=== PATIENT | male | born 1930 | race Caucasian/White ===

== ENCOUNTER 2019-03-06 06:33 | Inpatient (IN) | payer MEDICARE ==
[~2019-03-06] VITALS: Ht 177.8 cm; Wt 63.5 kg
--- NOTE | 2019-03-06 06:33 | NUR ---
PT [facility] BLS. TAKEN TO BED 7
--- NOTE | 2019-03-06 06:35 | NUR ---
Dr. Aguilar examining patient.
--- NOTE | 2019-03-06 06:41 | NUR ---
PT BIBA C/O NAUSEA/VOMITING AND ABD CRAMPING, CONSTIPATION X MULTIPLE DAYS. STATES THIS HAS HAPPENED IN THE PAST AND HE USUALLY TAKES STOOL SOFTENER BUT HAS NOT TAKEN IT THIS TIME. ABD SOFT, ROUND, TENDER TO PALP. NO ABD DISTENTION NOTED. RR EVEN AND UNLABORED, PT CALM AND PLEASANT IN BED, VSS. MEDHX: HTN ALLERGIES: DENIES
[2019-03-06] MEDS ORDERED: MORPHINE SULFATE 4 MG/ML SYR IVP ONE (06:45)
[2019-03-06] MEDS ORDERED: NACL 0.9% 1,000 ML IV ONE ×2 (06:45→08:50)
[2019-03-06] MEDS ORDERED: ONDANSETRON 4 MG/2 ML VIAL IVP ONE (06:45)
[2019-03-06 06:46] VITALS: BP 67/43
[2019-03-06] MEDS ORDERED: ATOR20TA PO (06:51)
[2019-03-06] MEDS ORDERED: LISI10TA11 PO (06:51)
--- NOTE | 2019-03-06 07:09 | NUR ---
Dr. Boland examining patient.
--- NOTE | 2019-03-06 07:40 | NUR ---
TO CT VIA W/C.
[2019-03-06 07:45] LABS: BASOPHILS # (AUTO) 0.1 K/uL (0.00-0.22); BASOPHILS % (AUTO) 0.4 % (0.0-2.0); EOSINOPHILS # (AUTO) 0.2 K/uL (0-0.4); EOSINOPHILS % (AUTO) 1.5 % (0.0-4.0); HEMATOCRIT 42.2 % (36-52); HEMOGLOBIN 13.9 g/dL (12.0-18.0); LYMPHOCYTES # (AUTO) 3.9 K/uL (2.0-11.5); LYMPHOCYTES % (AUTO) 29.1 % (20.5-51.1); MEAN CORPUSCULAR HEMOGLOBIN 32 pg (27-31); MEAN CORPUSCULAR HGB CONC 33 g/dL (33-37); MEAN CORPUSCULAR VOLUME 96.6 fL (80-94); MONOCYTES # (AUTO) 0.3 K/uL (0.8-1.0); MONOCYTES % (AUTO) 2.4 % (1.7-9.3); NEUTROPHILS # (AUTO) 8.8 K/uL (1.8-7.7); NEUTROPHILS % (AUTO) 66.6 % (42.2-75.2); PLATELET COUNT (AUTO) 192 K/uL (140-450); RED BLOOD CELL COUNT(AUTO) 4.37 MIL/uL (4.20-6.10); RED CELL DISTRIBUTION WIDTH 13.7 % (11.6-13.7); WHITE BLOOD COUNT (AUTO) 13.3 K/uL (4.8-10.8)
[2019-03-06 08:10] LABS: ANION GAP 20.6 (8-16); CARBON DIOXIDE 20.2 mmol/L (21-32); CHLORIDE 105 mmol/L (98-107); CREATININE 1.2 mg/dL (0.7-1.3); GLUCOSE 180 mg/dL (74-106); POTASSIUM 3.8 mmol/L (3.5-5.1); SODIUM SERUM 142 mmol/L (136-145); UREA NITROGEN, BLOOD 13 mg/dL (7-18)
[2019-03-06 08:15] LABS: ALBUMIN 3.5 g/dL (3.4-5.0); AMYLASE 103 U/L (25-115); ASPARTATE AMINOTRANSFERASE 31 U/L (15-37); LIPASE 154 U/L (73-393); TOTAL BILIRUBIN 0.8 mg/dL (0.0-1.0)
--- NOTE | 2019-03-06 08:25 | NUR ---
PT CLEANED AND POSITIONED FOR COMFORT
[2019-03-06] MEDS ORDERED: metroNIDAZOLE 500 MG/NS PREMIX 100 ML IV ONE (09:00)
[2019-03-06] MEDS ORDERED: LEVOFLOXACIN 500 MG/D5W PREMIX 100 ML IV ONE (09:00)
[2019-03-06 09:03] LABS: PROTHROMBIN TIME 10.4 secs (10.8-13.4)
[2019-03-06 10:40] VITALS: BP 103/57
--- NOTE | 2019-03-06 10:40 | NUR ---
RECEIVED PT FROM ED NURSE EMILY FOR CONTINUITY OF CARE. PT IS AAOX4, COOPERATIVE TO CARE. PT SKIN IS INTACT. PT AMBULATORY BUT MILDLY UNSTEADY ON FEET SO STANDBY ASSISTANCE NEEDED FOR SAFETY AND ASSISTANCE WITH IV LINES AND POLE. PT HAD ONE EPISODE OF DIARRHEA ON ADMISSION. DENIES HAVING N/V, CHEST PAIN, OR ABD PAIN. ALSO NO COMPLAINTS OF SOB OR DISTRESS. IV IN THE LEFT FA 18G RUNNING 1L NS BOLUS. IV IN THE RIGHT FA 20G SALINE LOCKED. PT LOOKS COMFORTABLE IN BED WITH RITU ASHFORD AT BEDSIDE. EXPLAINED POC TO PT AND SON AT BEDSIDE. BOTH VERBALIZED UNDERSTANDING OF TEACHING. MRSA SWAB DONE AND TAKEN TO LAB. FALL RISK SIGN POSTED AND WRIST BAND APPLIED. ALLERGY BAND WITH BEE ALLERGY ALSO PLACED ON PT. ALL SAFETY MEASURES IN PLACE. BED IN LOW POSITION, CALL LIGHT WITHIN REACH. PER RITU ASHFORD, ALL PT BELONGINGS WILL BE TAKEN HOME. PT VERBALIZES UNDERSTANDING OF USE OF CALL LIGHT AND UNDERSTANDS TO CALL FOR HELP TO THE RESTROOM. WILL ROUND FREQUENTLY ON PT.
--- NOTE | 2019-03-06 11:00 | NUR ---
D/C PLANNIN YRS OLD MALE PT WAS ADMITTED FROM HOME A/OX4 WITH A DX OF DIVERTICULITIS /COLITIS, EARLY SEPSIS DUE TO LACTIC ACID 6.6 TO 5.8 . HX OF BORDERLINE DM, HTN AND HYPERLIPIDEMIA .PT IS GETTING ZOSYN IVPB , SURGICAL AND GI CONSULT D/C PLANING PER RECOMMENDATION. Addendum: 03/08/19 at 1502 by Apurva Hayden CM D/C PLANNING : 03/07/[address] EVANS COLONOSCOPY TOMORROW ,CONTINUE ZOSYN IVPB , PAIN CONTOLL AND KEEP PT NPO FOR TODAY CM TO FOLLOW Addendum: 03/08/19 at 1509 by Apurva Hayden CM DC PLANNING : DISCHARGE PATIENT HOME AND F/U WITH PCP WITH IN 7 DAYS ,GI OUT PT IN 3-4 WEEKS FOR C SCOPE RESULT PROVIDED DR Juliann EVANS OFFICE NUMBER. SPOKE WITH ADRYAN FROM [facility] [phone] NOTIFIED THAT PT HAS A DC ORDER.
--- NOTE | 2019-03-06 11:01 | NUR ---
Patient will be admitted to care of DR. ORTIZ. Admited to [facility]. Will go to room 122-B. Belongings list completed. Report to RAINA ARELLANO.
--- NOTE | 2019-03-06 11:32 | NUR ---
PT SON AND DAUGHTER AT BEDSIDE. PT AUTHORIZED TO GIVE UPDATES AND ANY REQUESTED INFO TO THEM. DAUGHTER IS ASIYA: . SON IS DEJON: .
[2019-03-06] MEDS ORDERED: MORPHINE SULFATE 2 MG/ML SYR IVP PRN (11:50)
[2019-03-06] MEDS ORDERED: KETOROLAC 30 MG/ML VIAL IVP PRN (11:50)
[2019-03-06] MEDS ORDERED: INFLUENZA VACCINE QUAD 0.5 ML SYR IMVAC PRN (11:50)
[2019-03-06] MEDS ORDERED: PNEUMOCOCCAL VACCINE 23 MCG/0.5 ML VIAL IMVAC PRN (11:50)
[2019-03-06 12:00] VITALS: BP 106/60
[2019-03-06] MEDS ORDERED: DEXTROSE 50% 50 ML SYR IVP PRN (12:05)
[2019-03-06] MEDS ORDERED: INSULIN LISPRO SLIDING SCALE 100 UNITS/ML VIAL SUBQ PRN (12:05)
--- NOTE | 2019-03-06 12:28 | NUR ---
PATIENT HAS BEEN SCREENED AND CATEGORIZED HIGH NUTRITION RISK. PATIENT WILL BE SEEN WITHIN 1-2 DAYS OF ADMISSION. 03/06/19-03/07/[address]
[2019-03-06] MEDS: DEXT 5% / NACL 0.45% 1,000 ML IV SCH (12:32)
--- NOTE | 2019-03-06 12:46 | NUR ---
PT RESTING IN BED WITH SON AND DAUGHTER AT BEDSIDE. PT DENIES ANY MORE EPISODES OF DIARRHEA. DENIES N/V AT THIS TIME. ALL NEEDS MET. WILL CONTINUE TO ROUND FREQUENTLY ON PT. BED IN LOW POSITION, CALL LIGHT WITHIN REACH.
[2019-03-06] MEDS: PIPERACILLIN/TAZOBACTAM 3.375 GM in DEXTROSE 5% 50 ML IV SCH ×2 (14:06→20:33)
--- NOTE | 2019-03-06 14:39 | NUR ---
PT SLEEPING WITH FAMILY AT BEDSIDE. ALL NEEDS MET. WILL CONTINUE TO ROUND FREQUENTLY ON PT. BED IN LOW POSITION, CALL LIGHT WITHIN REACH.
[2019-03-06 16:00] VITALS: BP 122/52
[2019-03-06] MEDS: BLOOD GLUCOSE MONITORING 1 DEV DEV FS SCH ×2 (16:39→20:33)
--- NOTE | 2019-03-06 16:49 | NUR ---
PT RESTING IN BED. ALL NEEDS MET. WILL CONTINUE TO ROUND FREQUENTLY ON PT. BED IN LOW POSITION, CALL LIGHT WITHIN REACH.
[2019-03-06 17:43] LABS: APPEARANCE,URINE CLEAR (CLEAR); BILIRUBIN,URINE 1+ (NEGATIVE); BLOOD, URINE NEGATIVE (NEGATIVE); COLOR,URINE AMBER (YELLOW); LEUKOCYTE ESTERASE ,URINE NEGATIVE (NEGATIVE); NITRITE, URINE NEGATIVE (NEGATIVE); PH,URINE 5.5 (5.0-9.0); UGLUCOSE NEGATIVE (NEGATIVE)
[2019-03-06] MEDS ORDERED: HYOSCYAMINE 0.125 MG TAB PO PRN (17:55)
[2019-03-06] MEDS ORDERED: POLYETHYLENE GLYCOL 17 GM/PKT PO SCH (17:59)
--- NOTE | 2019-03-06 18:43 | NUR ---
PT HAD DINNER. FAMILY AT BEDSIDE. PT TOLERATED FOOD WELL SO FAR. WILL CONTINUE TO ROUND ON PT. BED IN LOW POSITION, CALL LIGHT WITHIN REACH.
--- NOTE | 2019-03-06 19:23 | NUR ---
ENDORSED PT TO CONTRACT ADMINISTRATION COORDINATOR FOR CONTINUITY OF CARE. PT IN STABLE CONDITION AT THIS TIME.
--- NOTE | 2019-03-06 19:24 | NUR ---
Received endorsement from AM shift RN; patient A/Ox4, able to make needs known, Bulgarian speaking, ambulatory with standby assist. Patient talking with daughter Eddie; introduced self, updated board. No SOB or distress noted, on room air. IV sites noted on left forearm, 18 gauge, running IVF at 70mL/hr. and right antecubital, 20 gauge, saline locked. Skin intact. Bed in the lowest position, call light within reach. Initial assessment done. Will continue to monitor.
[2019-03-06 20:00] VITALS: BP 107/52
--- NOTE | 2019-03-06 20:30 | NUR ---
Vitals taken, no SOB or distress noted. Patient was switched from 122B to 122A at this time.
--- NOTE | 2019-03-06 21:40 | NUR ---
Due meds given, tolerated well.
--- NOTE | 2019-03-06 23:30 | NUR ---
Vitals taken, no distress noted.
[2019-03-07] VITALS: BP 110/56
--- NOTE | 2019-03-07 01:02 | NUR ---
Rounds done; patient asleep, visible chest rise and fall noted.
[2019-03-07] MEDS: DEXT 5% / NACL 0.45% 1,000 ML IV SCH ×3 (01:40→21:16)
--- NOTE | 2019-03-07 03:30 | NUR ---
Vitals taken, no SOB or distress noted. Patient asleep, eyes closed, visible chest rise and fall noted.
[2019-03-07 04:00] VITALS: BP 109/61
[2019-03-07] MEDS: PIPERACILLIN/TAZOBACTAM 3.375 GM in DEXTROSE 5% 50 ML IV SCH ×3 (04:41→21:49)
[2019-03-07] MEDS: BLOOD GLUCOSE MONITORING 1 DEV DEV FS SCH ×4 (06:04→21:41)
--- NOTE | 2019-03-07 06:10 | NUR ---
Vitals stable, due meds given. Will endorse to AM shift RN for continuity of care.
--- NOTE | 2019-03-07 07:25 | NUR ---
RECEIVED BEDSIDE REPORT FROM DRY CELL SEALER NURSE FOR CONTINUITY OF CARE. PATIENT IS AWAKE AND RESTING ON BED. PATIENT SPEAKS CYMRO AND AAOX4. RESPIRATION EVEN AND UNLABORED ON RA. DENIED PAIN, SON AND NAUSEA. NO SIGNS OF DISTRESS NOTED. IV ON LFA 18, CLEAN AND INTACT, INFUSING PER MD ORDER. RAC 20G, CLEAN AND INTACT, SL. SKIN INTACT AND CLEAN. PATIENT IS CONTINENT AND ABLE TO AMBULATE WITH STANDBY ASSIST. URANAL BY BEDSIDE. DISCUSSED PLAN OF CARE WITH PATIENT AND PATIENT VERBALIZED UNDERSTANDING. TELE MONITOR ATTACHED. SAFETY MEASURES IN PLACE. BED IN LOW POSITION AND CALL LIGHT WITHIN REACH. FALL RISK PROTOCOL IN PLACE AND BED ALARM ACTIVATED. INSTRUCTED PATIENT TO USE THE CALL LIGHT FOR ANY ASSISTANCE AND PATIENT WAS AWARE.
[2019-03-07 08:00] VITALS: BP 105/52
[2019-03-07] MEDS: POLYETHYLENE GLYCOL 17 GM/PKT PO SCH (09:40)
--- NOTE | 2019-03-07 09:40 | NUR ---
ADMINISTERED MED PER MD ORDER, PATIENT TOLERATED WELL. MED EDUCATION PROVIDED TO PATIENT AND DAUGHTER MIA AT BEDSIDE, BOTH VERBALIZED UNDERSTANDING. PATIENT AWAKE AND TALKING TO DAUGHTER BY BEDSIDE. DENIED PAIN,SOB, NAUSEA, AND VOMITING. NO SIGNS OF DISTRESS NOTED. TELE MONITOR ATTACHED. SAFETY MEASURES IN PLACE. BED IN LOW POSITION AND CALL LIGHT WITHIN REACH. FALL RISK PROTOCOL IN PLACE AND BED ALARM ACTIVATED. INSTRUCTED PATIENT TO USE THE CALL LIGHT FOR ANY ASSISTANCE AND PATIENT WAS AWARE.
--- NOTE | 2019-03-07 10:01 | NUR ---
DR ORTIZ IS TALKING TO PATIENT AND PATIENT'S DAUGHTER MIA AT BEDSIDE. TELE MONITOR ATTACHED. NO SIGNS OF DISTRESS NOTED. SAFETY MEASURES IN PLACE.
--- NOTE | 2019-03-07 10:38 | NUR ---
Social Work Note: High Risk DC Screen Yes Name: Daphney De Guzman Home Relationship: Daughter Pre-Admission Living Arrangements: Lives with Other Prior ADL Needs Assistance Current Home Health Name/Tel: N/A Current DME/02 Name/Tel: CANE, WHEELCHAIR, WALKER Current Hospice Name/Tel: N/A Current Dialysis Name/Tel: N/A Healthcare Decision Maker: Patient Advance Directive No Information Taught: Advance Directive Person Taught: Children Teaching Tools: Computer Generated Print Verbal Factors Affecting Learning: None Participation Level: Active Evaluation: Verbalizes Understanding Needs Additional Education: No Discipline: Case Mgt/Social Svcs Tentative Discharge Plan/Destination: No Needs Identified Will require assistance post discharge: No Tentative Discharge Plan Summary: Patient is an 88 year old male that was admitted for diverticulitis. Patient has history of hyperlipidemia, hypertension, and borderline diabetes. No history of substance use or mental health per daughter, Daphney De Guzman [phone]. Patient was admitted from home. Patient's demographics, address, and emergency contact information was verified with Daphney Sepulveda. SW inquired if patient had an Advanced Directive on file. Daphney Sepulveda stated that patient did not and requested an Advanced Directive to be left at bedside. SW provided education on Advanced Directive and forms were left at bedside. Anticipated disposition is to return home. ART/CM will follow up as needed. Signature: ESHA Gimenez Date: Mar 07, 2019 Time: 10:37
[2019-03-07 11:08] LABS: BASOPHILS % (AUTO) 0.2 % (0.0-2.0); EOSINOPHILS % (AUTO) 0.3 % (0.0-4.0); HEMATOCRIT 34.7 % (36-52); HEMOGLOBIN 11.6 g/dL (12.0-18.0); LYMPHOCYTES % (AUTO) 19.5 % (20.5-51.1); MEAN CORPUSCULAR HEMOGLOBIN 32 pg (27-31); MEAN CORPUSCULAR HGB CONC 34 g/dL (33-37); MEAN CORPUSCULAR VOLUME 96.6 fL (80-94); MONOCYTES # (AUTO) 1.1 K/uL (0.8-1.0); MONOCYTES % (AUTO) 10.9 % (1.7-9.3); NEUTROPHILS # (AUTO) 7.1 K/uL (1.8-7.7); NEUTROPHILS % (AUTO) 69.1 % (42.2-75.2); PLATELET COUNT (AUTO) 154 K/uL (140-450); RED CELL DISTRIBUTION WIDTH 13.6 % (11.6-13.7); WHITE BLOOD COUNT (AUTO) 10.3 K/uL (4.8-10.8)
--- NOTE | 2019-03-07 11:35 | NUR ---
CHECKED BLOOD GLUCOSE AND RECEIVED 69. PATIENT DENIED DIZZINESS, LIGHTHEADEDNESS, NAUSEA AND VOMITING. PATIENT IS ASYMPTOMATIC. PROVIDED 4 OZ OF ORANGE JUICE TO PATIENT AND PATIENT IS DRINKING IT NOW. NO SIGNS OF DISTRESS NOTED. WILL RECHECK BLOOD GLUCOSE SHORTLY. PATIENT IS TALKING TO DAUGHTER MIA AND GRANDRITU YOU AT BEDSIDE. SAFETY MEASURES IN PLACE. BED IN LOW POSITION AND CALL LIGHT WITHIN REACH. FALL RISK PROTOCOL IN PLACE AND WOUND BED ACTIVATED. INSTRUCTED PATIENT TO USE THE CALL LIGHT FOR ANY ASSISTANCE AND PATIENT WAS AWARE.
[2019-03-07 11:46] LABS: ALBUMIN 2.7 g/dL (3.4-5.0); ASPARTATE AMINOTRANSFERASE 36 U/L (15-37); CHLORIDE 108 mmol/L (98-107); CREATININE 1.3 mg/dL (0.7-1.3); GLUCOSE 73 mg/dL (74-106); POTASSIUM 3.8 mmol/L (3.5-5.1); SODIUM SERUM 141 mmol/L (136-145); TOTAL BILIRUBIN 1.1 mg/dL (0.0-1.0); UREA NITROGEN, BLOOD 15 mg/dL (7-18)
--- NOTE | 2019-03-07 12:02 | NUR ---
RECHECKED BLOOD GLUCOSE 93 AND PATIENT IS TALKING TO DAUGHTER MIA AT BEDSIDE. NO SIGNS OF DISTRESS NOTED. SAFETY MEASURES IN PLACE.
[2019-03-07 12:20] LABS: ANION GAP 13.6 (8-16); CARBON DIOXIDE 23.2 mmol/L (21-32)
--- NOTE | 2019-03-07 13:13 | NUR ---
ADMINISTERED ANTIBIOTIC. PT. GIVEN MEDICATION TEACHING REGARDING MEDICATION PURPOSE, SIDE EFFECTS. PT. VERBALIZES UNDERSTANDING. DAUGHTER AT BEDSIDE. BED IN LOW POSITION. CALL LIGHT WITHIN REACH.
--- NOTE | 2019-03-07 13:41 | NUR ---
ENDORSED PATIENT AT BEDSIDE TO EMILY RN FOR CONTINUITY OF CARE. PATIENT IS RESTING ON BED AT THIS TIME. NO SIGNS OF DISTRESS NOTED. PATIENT IS IN STABLE CONDITION. SAFETY MEASURES IN PLACE.
--- NOTE | 2019-03-07 13:45 | NUR ---
RECEIVED REPORT FROM RAINA PHILLIP. PT HAS NO SIGNS OF DISTRESS AT THIS TIME.
--- NOTE | 2019-03-07 15:00 | NUR ---
PT RESTING IN BED IN SUPINE POSITION WATCHING TV. PT DENIES PAIN AND HAS NO SIGNS OF DISTRESS AT THIS TIME.
--- NOTE | 2019-03-07 15:03 | NUR ---
03/07/19 RD INITIAL ASSESSMENT COMPLETED PLEASE REFER TO NUTRITION ASSESSMENT UNDER CARE ACTIVITY FOR ESTIMATED NUTRITIONAL NEEDS. 1. CONTINUE CLEAR LIQUID DIET TOLERATED 2. IF/WHEN MEDICALLY APPOPRIATE TO START NUTRITION, CONSIDER ADVANCE DIET TOLERATED TO CARDIAC, NA2GM DIET 3. DIET EDUCATION REGARDING AN OVERALL HEALTHY DIET INCLUDING HTN MANAGEMENT AND HIGH FIBER DIET WAS GIVEN 4. RD TO FOLLOW-UP 2-3 DAYS, HIGH RISK CHASIDY TOM RD
[2019-03-07 16:00] VITALS: BP 103/60
[2019-03-07] MEDS ORDERED: BOWEL EVACUANT DRINK 4,000 ML PDS PO SCH (17:00)
[2019-03-07] MEDS ORDERED: LACTULOSE 20 GM/30 ML UDC PO SCH (17:00)
[2019-03-07] MEDS ORDERED: SENNA 8.6 MG TAB PO SCH (17:00)
--- NOTE | 2019-03-07 17:15 | NUR ---
NOTED ORDERS FROM DR. EVANS. ADMINISTERED MEDICATIONS AND GIVEN INSTRUCTIONS REGARDING BOWEL PREPARATION FOR PROCEDURE TOMORROW TO PT AND FAMILY, VERBALIZED UNDERSTANDING OF INDICATIONS AND POTENTIAL SIDE EFFECTS. PROVIDED BEDSIDE COMMODE. PT HAS NO SIGNS OF DISTRESS AT THIS TIME.
--- NOTE | 2019-03-07 19:05 | NUR ---
ENDORSED PT TO SUMMER BABYSITTER NURSE. PT HAS NO SIGNS OF DISTRESS AT THIS TIME.
--- NOTE | 2019-03-07 19:06 | NUR ---
RECD. RESTING IN BED, AWAKE, A/OX4. RESPIRATION EVEN AND UNLABORED. IV OF D5 1/2S AT 70 ML/HR INFUSING, LEFT AC G18. PATIENT HAS FINISHED DRINKING THE GOLYTELY. USES THE BSC WITH ASSISTANCE. PLAN OF CARE FOR THE SHIFT DISCUSSED. VERBALIZED UNDERSTANDING. DENIES PAIN 0/10.
--- NOTE | 2019-03-07 20:30 | NUR ---
ASSISTED TO BSC TO HAVE BM. HAD BM WHICH IS YELLOWISH LIKE URINE BUT WITH SOME BROWNISH LIQUID MIX IN IT. ASSISTED BACK TO BED, SAFETY MAINTAINED.
--- NOTE | 2019-03-07 21:00 | NUR ---
ASSISTED TO THE BSC TO HAVE BM. BACK TO BED WITH ASSISTANCE.
--- NOTE | 2019-03-07 21:30 | NUR ---
ASSISTED TO BSC TO HAVE ANOTHER BM, STARTING TO HAVE A CLEAR BM.
--- NOTE | 2019-03-07 21:45 | NUR ---
ASSISTED AGAIN TO BSC TO HAVE BM. ONLY A SMALL AMOUNT OF YELLOWISH WITH TINT OF BROWN LIQUID NOTED.
--- NOTE | 2019-03-07 23:00 | NUR ---
SLEEPING COMFORTABLY IN BED.
--- NOTE | 2019-03-07 23:20 | NUR ---
WENT KALYN BSC WITHOUT CALL NURSE, INSTRUCTED TO USE CALL LIGHT WHENEVER GETTING OUT OF BED. VERBALIZED UNDERSTANDING.
--- NOTE | 2019-03-08 00:25 | NUR ---
OUT OF BED TO GO TO BSC FOR THE SEVENTH TIME, ASSISTED BACK TO BED. SAFETY MAINTAINED.
--- NOTE | 2019-03-08 02:30 | NUR ---
GETTING CONFUSED, REORIENTED TO HOSPITAL SETTING.
--- NOTE | 2019-03-08 03:30 | NUR ---
ASSISTED TWICE TO GO TO BSC. BM CLEAR. BACK TO BED. ADVISED TO SLEEP MORE.
[2019-03-08 04:00] VITALS: BP 113/49
--- NOTE | 2019-03-08 05:30 | NUR ---
ASSISTED BY RN TO GO TO BSC. BACK TO BED AFTER USING BSC.
[2019-03-08] MEDS: DEXT 5% / NACL 0.45% 1,000 ML IV SCH (06:44)
[2019-03-08] MEDS: PIPERACILLIN/TAZOBACTAM 3.375 GM in DEXTROSE 5% 50 ML IV SCH (06:55)
[2019-03-08] MEDS: BLOOD GLUCOSE MONITORING 1 DEV DEV FS SCH ×2 (07:01→12:05)
--- NOTE | 2019-03-08 07:25 | NUR ---
ENDORSED TO AM SHIFT NURSE FOR CONTINUITY OF CARE.
--- NOTE | 2019-03-08 07:27 | NUR ---
RECEIVED REPORT FROM DIGITAL CARTOGRAPHIC TECHNICIAN NURSE. PT LYING IN BED,AWAKE AND ALERT, VERBALLY RESPONSIVE. NO S/S OF PAIN OR SOB. PT ON ROOM AIR. SKIN INTACT. IV INTACT AND PATENT TO RIGHT AC WITH IVF D5 1/2 NS 70ML/HR. TOLERATING WELL. FALL PRECAUTIONS IN PLACE. CALL LIGHT WITHIN REACH.
[2019-03-08] MEDS: POLYETHYLENE GLYCOL 17 GM/PKT PO SCH (10:27)
--- NOTE | 2019-03-08 10:30 | NUR ---
CONTINUES TO BE NPO EXCEPT MEDICATIONS. PATIENT IS LYING IN BED, DENIES ANY PAIN OR DISCOMFORT. IVF D5 1/2 NS INFUSING @70ML/HR. TOLERATING WELL. FALL PRECAUTIONS IN PLACE. PATIENT AMBULATED TO THE RESTROOM WITH 1 PERSON ASSIST.
[2019-03-08] MEDS ORDERED: diphenhydrAMINE 50 MG/ML VIAL ONE (13:24)
[2019-03-08] MEDS ORDERED: fentaNYL 0.05 MG/ML VIAL ONE (13:24)
[2019-03-08] MEDS ORDERED: MIDAZOLAM 2 MG/2 ML VIAL ONE (13:24)
--- NOTE | 2019-03-08 13:30 | NUR ---
PATIENT IS OFF THE UNIT FOR GI COLONOSCOPY PROCEDURE AT THIS TIME.
[2019-03-08] MEDS ORDERED: fentaNYL 0.05 MG/ML VIAL IVP ONE (14:27)
[2019-03-08] MEDS ORDERED: MIDAZOLAM 2 MG/2 ML VIAL IVP ONE (14:28)
--- NOTE | 2019-03-08 15:30 | NUR ---
PATIENT RETURNED FROM GI COLONOSCOPY. NO S/S DISTRESS NOTED.
[2019-03-08 15:59] VITALS: BP 100/67
[2019-03-08 16:00] VITALS: BP 100/67
[2019-03-08] MEDS ORDERED: CIPR500T4 PO ×2 (16:10→16:13)
[2019-03-08] MEDS ORDERED: METR500T1 PO ×2 (16:11→16:50)
--- NOTE | 2019-03-08 17:05 | NUR ---
PATIENT IS DISCHARGED TO HOME. DISCHARGED INSTRUCTIONS PROVIDED AND ALL BELONGINGS TAKEN WITH PATIENT AND FAMILY. NAME BAND AND IV REMOVED. BLEEDING CONTROLLED.
[2019-03-09] MEDS ORDERED: PSYLLIUM 12.2 GM/PKT PO SCH (09:00)
== END 2019-03-08 17:05 | disposition home or self-care (01) | DRG 394 ==
LOC: MED 06:33 → MTU 09:18
PROVIDERS: ADMIT Internal Medicine; ATTEND Internal Medicine
PROC: 0DBG8ZX Excision of Left Large Intestine, Via Natural or Artificial Opening Endoscopic, Diagnostic (ICD-10-PCS; principal; 2019-03-08 12:30)
DX: K55.9 Vascular disorder of intestine, unspecified (principal); K57.32 Diverticulitis of large intestine without perforation or abscess without bleeding; K52.9 Noninfective gastroenteritis and colitis, unspecified; E11.9 Type 2 diabetes mellitus without complications; E78.5 Hyperlipidemia, unspecified; I10 Essential (primary) hypertension; D64.9 Anemia, unspecified; I25.10 Atherosclerotic heart disease of native coronary artery without angina pectoris; N40.0 Benign prostatic hyperplasia without lower urinary tract symptoms; K59.00 Constipation, unspecified; M16.0 Bilateral primary osteoarthritis of hip; M47.815 Spondylosis without myelopathy or radiculopathy, thoracolumbar region
CPT/HCPCS: 36415; 80053; 81003; 82150; 82948; 83605; 83690; 84484; 85025; 85610; 85730; 86140; 86886; 86900; 86901; 87040; 87070; 87081; 87086; 88305; 93005; 96361; 96365; 96368; 96375; 97116; 97161-GP; 97530; 99291; J1200; J1815; J1956; J2250; J2270; J2405; J2543; J3010; J3490; J7030; J7042; J7060

== ENCOUNTER 2020-01-12 08:31 | Emergency (ER) | payer MEDICARE ==
[~2020-01-12] VITALS: Ht 175.3 cm; Wt 63.5 kg
[~2020-01-12 08:31] MED LIST: ATOR20TA PO; CIPR500T4 PO; LISI10TA11 PO; METR500T1 PO
--- NOTE | 2020-01-12 08:35 | NUR ---
PATIENT AMBULATED TO ER BED 3.
[2020-01-12 08:44] VITALS: BP 108/60
--- NOTE | 2020-01-12 08:45 | NUR ---
89 YEAR OLD MALE BROUGHT IN BY DAUGHTER, SHE STATES HE HAS HAD DIMINISHED APPETITE FOR THE PAST 3-4 DAYS AND WAS WORRIED. PT STATES HE HAS NOT BEEN EATING MUCH BECAUSE NOT HUNGRY AND DRINKING SOME WATER. PT STATES BOWEL MOVEMENT YESTERDAY AND URINATED THIS MORNING WITHOUT PROBLEMS. PT DENIES N/V/D. PT STATES HE DOES NOT FEEL HEADACHE, DIZZINESS, CP, OR SOB. PT AOX4, BREATHING EVEN AND UNLABORED, SKIN WARM AND DRY. BED IN LOWEST POSITION, LOCKED, BED RAIL UPX1. PMH - BORDERLINE DM2, HEART MURMUR ALLERGIES - NKA
[2020-01-12] MEDS ORDERED: NACL 0.9% 1,000 ML IV SCH (09:33)
[2020-01-12 09:59] LABS: BASOPHILS % (AUTO) 0.5 % (0.0-2.0); EOSINOPHILS # (AUTO) 0.2 K/uL (0-0.4); EOSINOPHILS % (AUTO) 2.5 % (0.0-4.0); HEMATOCRIT 35.4 % (36-52); LYMPHOCYTES # (AUTO) 1.8 K/uL (2.0-11.5); LYMPHOCYTES % (AUTO) 29.5 % (20.5-51.1); MEAN CORPUSCULAR HEMOGLOBIN 33 pg (27-31); MEAN CORPUSCULAR HGB CONC 34 g/dL (33-37); MEAN CORPUSCULAR VOLUME 96.5 fL (80-94); MONOCYTES # (AUTO) 0.5 K/uL (0.8-1.0); MONOCYTES % (AUTO) 8.8 % (1.7-9.3); NEUTROPHILS # (AUTO) 3.6 K/uL (1.8-7.7); NEUTROPHILS % (AUTO) 58.7 % (42.2-75.2); PLATELET COUNT (AUTO) 145 K/uL (140-450); RED BLOOD CELL COUNT(AUTO) 3.66 MIL/uL (4.20-6.10); RED CELL DISTRIBUTION WIDTH 13.5 % (11.6-13.7); WHITE BLOOD COUNT (AUTO) 6.1 K/uL (4.8-10.8)
[2020-01-12 10:03] LABS: APPEARANCE,URINE HAZY (CLEAR); BILIRUBIN,URINE NEGATIVE (NEGATIVE); BLOOD, URINE NEGATIVE (NEGATIVE); COLOR,URINE DARK YELLOW (YELLOW); LEUKOCYTE ESTERASE ,URINE NEGATIVE (NEGATIVE); NITRITE, URINE NEGATIVE (NEGATIVE); UGLUCOSE NEGATIVE (NEGATIVE)
[2020-01-12 10:36] LABS: ALBUMIN 3.1 g/dL (3.4-5.0); ANION GAP 14.7 (8-16); ASPARTATE AMINOTRANSFERASE 20 U/L (15-37); CARBON DIOXIDE 23.2 mmol/L (21-32); CHLORIDE 104 mmol/L (98-107); CREATININE 1.2 mg/dL (0.6-1.3); GLUCOSE 137 mg/dL (74-106); POTASSIUM 3.9 mmol/L (3.5-5.1); SODIUM SERUM 138 mmol/L (136-145); TOTAL BILIRUBIN 1.3 mg/dL (0.0-1.0); UREA NITROGEN, BLOOD 19 mg/dL (7-18)
--- NOTE | 2020-01-12 11:25 | NUR ---
COVID swab collected and sent to lab.
[2020-01-12 11:32] VITALS: BP 123/59
--- NOTE | 2020-01-12 11:32 | NUR ---
Patient discharged with v/s stable. Written and verbal after care instructions given and explained. Patient alert, oriented and verbalized understanding of instructions. Ambulatory with steady gait. All questions addressed prior to discharge. ID band removed. Patient advised to follow up with PMD. Rx of Azithromycin 250mg and Promethazine Hydrochloride/Dexromethorphan given. I also explained to daughter that COVID results take 2-3 days and to expect a call Wednesday, Wednesday at the latest and she verbalized understanding. Phone number provided with extension so patient/family could follow up with results. Patient educated on indication of medication including possible reaction and side effects. Opportunity to ask questions provided and answered.
== END 2020-01-12 11:32 | disposition home or self-care (01) ==
LOC: MED 08:31
DX: J18.9 Pneumonia, unspecified organism (principal); E11.9 Type 2 diabetes mellitus without complications; I10 Essential (primary) hypertension; Z79.899 Other long term (current) drug therapy; Z20.828 Contact with and (suspected) exposure to other viral communicable diseases
CPT/HCPCS: 36415; 71045; 80053; 81003; 83605; 83880; 84484; 85025; 87040; 87086; 93005; 96360; 96361; 99285; Q0092; U0003; J7030

== ENCOUNTER 2020-02-08 18:31 | Emergency (ER) | payer MEDICARE ==
[~2020-02-08] VITALS: Ht 177.8 cm; Wt 63.5 kg
[2020-02-08 18:36] VITALS: BP 121/70
--- NOTE | 2020-02-08 18:36 | NUR ---
Pt ambulated to bed 10.
--- NOTE | 2020-02-08 18:50 | NUR ---
EMT at bedside for EKG
--- NOTE | 2020-02-08 18:50 | NUR ---
89/M bib daughter for evaluation of decrease in appetite for x 3-4 days. Pt states he feels "great". No pain. Per daughter, last time he had decrease in appetite pt had PNA. VSS. hx: HTN, high cholesterol
--- NOTE | 2020-02-08 19:01 | NUR ---
cxr at bedside
[2020-02-08 19:03] LABS: BASOPHILS % (AUTO) 0.5 % (0.0-2.0); EOSINOPHILS # (AUTO) 0.2 K/uL (0-0.4); EOSINOPHILS % (AUTO) 2.8 % (0.0-4.0); HEMATOCRIT 36.4 % (36-52); HEMOGLOBIN 12.4 g/dL (12.0-18.0); LYMPHOCYTES # (AUTO) 1.9 K/uL (2.0-11.5); LYMPHOCYTES % (AUTO) 25.4 % (20.5-51.1); MEAN CORPUSCULAR HEMOGLOBIN 32 pg (27-31); MEAN CORPUSCULAR HGB CONC 34 g/dL (33-37); MEAN CORPUSCULAR VOLUME 95.3 fL (80-94); MONOCYTES # (AUTO) 0.6 K/uL (0.8-1.0); MONOCYTES % (AUTO) 8.7 % (1.7-9.3); NEUTROPHILS # (AUTO) 4.6 K/uL (1.8-7.7); NEUTROPHILS % (AUTO) 62.6 % (42.2-75.2); PLATELET COUNT (AUTO) 150 K/uL (140-450); RED BLOOD CELL COUNT(AUTO) 3.82 MIL/uL (4.20-6.10); RED CELL DISTRIBUTION WIDTH 13.9 % (11.6-13.7); WHITE BLOOD COUNT (AUTO) 7.3 K/uL (4.8-10.8)
--- NOTE | 2020-02-08 19:05 | NUR ---
U/S TECH AT BEDSIDE
[2020-02-08 19:12] LABS: APPEARANCE,URINE CLEAR (CLEAR); BILIRUBIN,URINE NEGATIVE (NEGATIVE); BLOOD, URINE NEGATIVE (NEGATIVE); COLOR,URINE YELLOW (YELLOW); LEUKOCYTE ESTERASE ,URINE NEGATIVE (NEGATIVE); NITRITE, URINE NEGATIVE (NEGATIVE); UGLUCOSE NEGATIVE (NEGATIVE)
--- NOTE | 2020-02-08 19:17 | NUR ---
RECEVIED REPORT FROM RAINA CORNELIUS. WILL CONT CARE AT THIS TIME.
[2020-02-08 19:18] LABS: ALBUMIN 3.4 g/dL (3.4-5.0); ANION GAP 10.5 (8-16); ASPARTATE AMINOTRANSFERASE 31 U/L (15-37); CARBON DIOXIDE 28.6 mmol/L (21-32); CHLORIDE 103 mmol/L (98-107); CREATININE 1.2 mg/dL (0.6-1.3); GLUCOSE 190 mg/dL (74-106); POTASSIUM 4.1 mmol/L (3.5-5.1); SODIUM SERUM 138 mmol/L (136-145); TOTAL BILIRUBIN 0.9 mg/dL (0.0-1.0); UREA NITROGEN, BLOOD 14 mg/dL (7-18)
--- NOTE | 2020-02-08 20:26 | NUR ---
Dr. Sosa examining patient.
[2020-02-08 21:24] VITALS: BP 97/58
--- NOTE | 2020-02-08 21:24 | NUR ---
Patient discharged with v/s stable. Written and verbal after care instructions given and explained. Patient verbalized understanding. Ambulatory with steady gait. All questions addressed prior to discharge. Advised to follow up with PMD.
== END 2020-02-08 21:24 | disposition home or self-care (01) ==
LOC: MED 18:31
DX: R63.0 Anorexia (principal)
CPT/HCPCS: 36415; 71045; 80053; 81003; 84484; 85025; 93005; 99285; Q0092

== ENCOUNTER 2020-08-23 08:27 | Emergency (ER) | payer MEDICARE ==
[~2020-08-23] VITALS: Ht 175.3 cm; Wt 61.2 kg
[~2020-08-23 08:27] MED LIST changes: +LISI-486 PO; -LISI10TA11 PO
[2020-08-23 08:34] VITALS: BP 90/52
--- NOTE | 2020-08-23 08:35 | NUR ---
Patient ambulated to bed 11 with walker accompanied by daughter.
--- NOTE | 2020-08-23 08:40 | NUR ---
89 y/o M brought in by daughter with c/c diarrhea x 2 days. Patient states he felt constipated x 2 days, and daughter provided a stool softener x 2 days. Patient states he began experiencing diarrhea, liquid/brown after stool softener. Daughter states patient has had a loss of appetite. Denies N/V, dizziness, headache, SOB, CP, abdominal pain, back pain. 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 Lung sounds CTA. Bowel sounds hyperactive x 4 quadrants. Respirations even/unlabored. Bed locked in lowst position, side rails x1, call light in reach. PMH: HTN, hyperlipidemia MED: LISINOPRIL 10MG, ATORVASTATIN 20MG NKA Sx: Denies
--- NOTE | 2020-08-23 08:45 | NUR ---
Dr. John is evaluating patient at bedside.
--- NOTE | 2020-08-23 09:00 | NUR ---
Xray at bedside
--- NOTE | 2020-08-23 10:09 | NUR ---
Patient discharged with v/s stable. Written and verbal after care instructions given and explained. Patient verbalized understanding. PT AMB WITH CANE. All questions addressed prior to discharge. Advised to follow up with PMD.
[2020-08-23 10:12] VITALS: BP 100/61
== END 2020-08-23 10:09 | disposition home or self-care (01) ==
LOC: MED 08:27
DX: R19.7 Diarrhea, unspecified (principal); E11.9 Type 2 diabetes mellitus without complications; I10 Essential (primary) hypertension
CPT/HCPCS: 74021; 99283

== ENCOUNTER 2021-07-29 09:21 | Emergency (ER) | payer MEDICARE ==
[~2021-07-29] VITALS: Ht 175.3 cm; Wt 60.8 kg
[2021-07-29 09:28] VITALS: BP 107/58
[2021-07-29] MEDS ORDERED: NACL 0.9% 1,000 ML IV SCH (09:35)
--- NOTE | 2021-07-29 09:55 | NUR ---
LAB AT BEDSIDE TO DRAW BLOOD
--- NOTE | 2021-07-29 09:57 | NUR ---
89 Y/O MALE BIB DAUGTHER C/O DIARRHEA STARTED TODAY. STATED THAT HE HAD CONSTIPATION FOR 4 DAYS TOOK DSS 100MG AND HAS BEEN HAVING DIARRHEA, LOOSE WATERY STOOL. NO DIARRHEA NOTED AT THIS TIME. DENIES ANY NAUSEA/VOMITING. DAUGTHER STATES CONCERN FOR DEHYDRATION MEDHX: HTN, HLD NKDA
[2021-07-29 10:10] LABS: BASOPHILS % (AUTO) 0.3 % (0.0-2.0); HEMATOCRIT 34.1 % (36-52); HEMOGLOBIN 11.7 g/dL (12.0-18.0); LYMPHOCYTES # (AUTO) 1.2 K/uL (2.0-11.5); LYMPHOCYTES % (AUTO) 13.4 % (20.5-51.1); MEAN CORPUSCULAR HEMOGLOBIN 33 pg (27-31); MEAN CORPUSCULAR HGB CONC 34 g/dL (33-37); MEAN CORPUSCULAR VOLUME 95.2 fL (80-94); MONOCYTES # (AUTO) 0.9 K/uL (0.8-1.0); MONOCYTES % (AUTO) 9.4 % (1.7-9.3); NEUTROPHILS # (AUTO) 7.1 K/uL (1.8-7.7); NEUTROPHILS % (AUTO) 76.9 % (42.2-75.2); PLATELET COUNT (AUTO) 181 K/uL (140-450); RED BLOOD CELL COUNT(AUTO) 3.58 MIL/uL (4.20-6.10); RED CELL DISTRIBUTION WIDTH 13.4 % (11.6-13.7); WHITE BLOOD COUNT (AUTO) 9.2 K/uL (4.8-10.8)
--- NOTE | 2021-07-29 11:08 | NUR ---
DR. AREVALO AT BEDSIDE\
--- NOTE | 2021-07-29 11:16 | NUR ---
PT AMBULATED TO RESTROOM WITH STEADY GAIT USING CANE.
[2021-07-29 11:19] LABS: ALBUMIN 3.5 g/dL (3.4-5.0); ANION GAP 18.4 (8-16); ASPARTATE AMINOTRANSFERASE 24 U/L (15-37); CARBON DIOXIDE 20.4 mmol/L (21-32); CHLORIDE 105 mmol/L (98-107); CREATININE 1.6 mg/dL (0.6-1.3); GLUCOSE 111 mg/dL (74-106); LIPASE 248 U/L (73-393); POTASSIUM 3.8 mmol/L (3.5-5.1); SODIUM SERUM 140 mmol/L (136-145); TOTAL BILIRUBIN 0.8 mg/dL (0.0-1.0); UREA NITROGEN, BLOOD 25 mg/dL (7-18)
--- NOTE | 2021-07-29 11:52 | NUR ---
PT AMBULATED TO RESTROOM WITH STEADY GAIT USING CANE.
[2021-07-29 12:05] VITALS: BP 109/62
== END 2021-07-29 12:05 | disposition home or self-care (01) ==
LOC: MED 09:21
DX: R19.7 Diarrhea, unspecified (principal); E86.0 Dehydration; E11.9 Type 2 diabetes mellitus without complications; I10 Essential (primary) hypertension; Z79.899 Other long term (current) drug therapy; Z79.2 Long term (current) use of antibiotics; Z91.030 Bee allergy status
CPT/HCPCS: 36415; 80053; 83690; 85025; 96360; 99283; J7030

== ENCOUNTER 2022-01-07 19:07 | Emergency (ER) | payer MEDICARE ==
[~2022-01-07] VITALS: Ht 177.8 cm; Wt 57.6 kg
[2022-01-07 21:11] VITALS: BP 101/60
--- NOTE | 2022-01-07 21:19 | NUR ---
TO LOBBY FOLLOWING TRIAGE
[2022-01-07 23:46] LABS: BASOPHILS % (AUTO) 0.2 % (0.0-2.0); HEMATOCRIT 34.4 % (36-52); HEMOGLOBIN 11.7 g/dL (12.0-18.0); LYMPHOCYTES # (AUTO) 1.9 K/uL (2.0-11.5); LYMPHOCYTES % (AUTO) 15.3 % (20.5-51.1); MEAN CORPUSCULAR HEMOGLOBIN 32 pg (27-31); MEAN CORPUSCULAR HGB CONC 34 g/dL (33-37); MEAN CORPUSCULAR VOLUME 93.9 fL (80-94); MONOCYTES % (AUTO) 8.4 % (1.7-9.3); NEUTROPHILS # (AUTO) 9.3 K/uL (1.8-7.7); NEUTROPHILS % (AUTO) 76.1 % (42.2-75.2); PLATELET COUNT (AUTO) 176 K/uL (140-450); RED BLOOD CELL COUNT(AUTO) 3.66 MIL/uL (4.20-6.10); RED CELL DISTRIBUTION WIDTH 13.3 % (11.6-13.7); WHITE BLOOD COUNT (AUTO) 12.2 K/uL (4.8-10.8)
[2022-01-08 01:29] LABS: ALBUMIN 3.6 g/dL (3.4-5.0); ANION GAP 17.7 (8-16); ASPARTATE AMINOTRANSFERASE 30 U/L (15-37); CARBON DIOXIDE 24.1 mmol/L (21-32); CHLORIDE 102 mmol/L (98-107); GLUCOSE 102 mg/dL (74-106); LIPASE 96 U/L (73-393); POTASSIUM 3.8 mmol/L (3.5-5.1); SODIUM SERUM 140 mmol/L (136-145); TOTAL BILIRUBIN 1.7 mg/dL (0.0-1.0); UREA NITROGEN, BLOOD 30 mg/dL (7-18)
--- NOTE | 2022-01-08 01:32 | NUR ---
Called patient and patient's family cell phone - no answers.
[2022-01-08] MEDS ORDERED: NACL 0.9% 1,000 ML IV ONE (01:40)
--- NOTE | 2022-01-08 01:43 | NUR ---
PT TAKEN TO BED 10
[2022-01-08 01:47] LABS: APPEARANCE,URINE SL CLOUDY (CLEAR); BILIRUBIN,URINE NEGATIVE (NEGATIVE); BLOOD, URINE NEGATIVE (NEGATIVE); COLOR,URINE YELLOW (YELLOW); LEUKOCYTE ESTERASE ,URINE TRACE (NEGATIVE); NITRITE, URINE NEGATIVE (NEGATIVE); PH,URINE 5.5 (5.0-9.0); UGLUCOSE NEGATIVE (NEGATIVE)
--- NOTE | 2022-01-08 01:58 | NUR ---
PT RETURN FROM CT
--- NOTE | 2022-01-08 02:00 | NUR ---
ASSUME CARE OF PT AT THIS TIME, PT PLACED ON LIEUTENANT/DEPUTY, PT C/O DIARRHEA, DENIES CP OR ABD PAIN, DAUGHTER AT BEDSIDE, PT DENIES ANY DISCOMFORT AT PRESENT TIME
--- NOTE | 2022-01-08 04:00 | NUR ---
PT RESTING IN BED, NO EPISODES OF DIARRHEA WHILE IN THE ER. DENIES ANY DISCOMFORT.
[2022-01-08] MEDS ORDERED: BEN10 PO (05:40)
[2022-01-08] MEDS ORDERED: METR-435 PO (05:40)
[2022-01-08] MEDS ORDERED: metroNIDAZOLE 500 MG TAB PO ONE (05:45)
--- NOTE | 2022-01-08 06:09 | NUR ---
Patient discharged with v/s stable. Written and verbal after care instructions given and explained. Patient verbalized understanding. Wheel Chair Assisted with to car. All questions addressed prior to discharge. Advised to follow up with PMD.
[2022-01-08 06:10] VITALS: BP 124/60
== END 2022-01-08 06:09 | disposition home or self-care (01) ==
LOC: MED 19:07
DX: K52.9 Noninfective gastroenteritis and colitis, unspecified (principal); R19.7 Diarrhea, unspecified; F03.90 Unspecified dementia, unspecified severity, without behavioral disturbance, psychotic disturbance, mood disturbance, and anxiety; E11.9 Type 2 diabetes mellitus without complications; I10 Essential (primary) hypertension; Z79.899 Other long term (current) drug therapy
CPT/HCPCS: 36415; 74176; 80053; 81003; 83690; 84484; 85025; 93005; 96360; 99285; J7030